=== PATIENT | male | born 1960 | race African-American/Black ===

== ENCOUNTER 2016-12-02 22:06 | Emergency (ER) | payer BC ==
[~2016-12-02] VITALS: Ht 167.6 cm; Wt 112.0 kg
[~2016-12-02 22:06] MED LIST: ACID REDUCER75 MG PO; ATENOLOL50 MG PO; LEXAPRO; LISINOPRIL20 MG PO; MIRALAX17 GM PO; PRILOSEC; PRINIVIL10 MG PO
[2016-12-02 22:51] LABS: HEMATOCRIT 38.3 % (38.0-50.0); MCH 29.5 PG (29.0-34.0); MCV 81.8 FL (86-99); MEAN PLAT.VOLUME 9.4 uM^3 (9.0-12.4); PLATELET COUNT 292 K/uL (156-360); RBC DIS.WIDTH-CV 12.9 % (11.8-14.6); RBC DIS.WIDTH-SD 38.3 % (39-53); RED BLOOD COUNT 4.68 M/uL (4.00-5.50); WHITE BLOOD COUNT 7.6 K/uL (4.1-10.2)
[2016-12-02 23:03] LABS: CHLORIDE 105 mEq/L (99-109); POTASSIUM 3.4 mEq/L (3.7-5.4); SODIUM 140 mEq/L (136-147)
[2016-12-02 23:04] LABS: GLUCOSE 107 mg/dL (70-99)
[2016-12-02 23:06] LABS: ANION GAP 8 MEQ/L (2-14)
[2016-12-02 23:08] LABS: GFR ESTIMATE (CALCULATED) > 59 mL/min/
[2016-12-02 23:09] LABS: UREA NITROGEN (BUN) 12 mg/dL (9-23)
[2016-12-03 00:08] LABS: TROP-I INTERPRETATION NEGATIVE; TROPONIN-I < 0.01 ng/mL (0.0-0.30)
[2016-12-03] MEDS ORDERED: PROAIR RESPICL90 MCG IH (00:47)
[2016-12-03] MEDS ORDERED: PREDNISONE50 MG PO (00:47)
[2016-12-03 01:16] VITALS: BP 130/86
== END 2016-12-03 01:16 | disposition home or self-care (01) ==
LOC: EME 22:06
PROVIDERS: Emergency Medicine
DX: J20.9 Acute bronchitis, unspecified (principal); I10 Essential (primary) hypertension
CPT/HCPCS: 71020; 80048; 83880; 84484; 85027; 93005; 94640; 99281; 99284; J7512

== ENCOUNTER 2017-08-16 01:16 | Emergency (ER) | payer BC ==
[~2017-08-16] VITALS: Ht 167.6 cm; Wt 115.8 kg
[~2017-08-16 01:16] MED LIST changes: +PREDNISONE50 MG PO; +PROAIR RESPICL90 MCG IH
[2017-08-16 02:49] LABS: HEMATOCRIT 41.6 % (38.0-50.0); HEMOGLOBIN 15.2 G/DL (12.5-16.6); MCH 30.7 PG (29.0-34.0); MCHC 36.5 G/DL (30.0-36.0); PLATELET COUNT 259 K/uL (156-360); RBC DIS.WIDTH-CV 13.5 % (11.8-14.6); RBC DIS.WIDTH-SD 41.6 % (39-53); RED BLOOD COUNT 4.95 M/uL (4.00-5.50); WHITE BLOOD COUNT 9.5 K/uL (4.1-10.2)
[2017-08-16 02:57] LABS: CHLORIDE 103 mEq/L (99-109); POTASSIUM 3.4 mEq/L (3.7-5.4); SODIUM 139 mEq/L (136-147)
[2017-08-16 02:59] LABS: GLUCOSE 110 mg/dL (70-99)
[2017-08-16 03:02] LABS: GFR ESTIMATE (CALCULATED) > 59 mL/min/ (58.99-99999)
[2017-08-16 03:03] LABS: UREA NITROGEN (BUN) 15 mg/dL (9-23)
[2017-08-16] MEDS ORDERED: PREDNISONE20 MG PO (05:25)
[2017-08-16 05:46] VITALS: BP 168/71
== END 2017-08-16 05:47 | disposition home or self-care (01) ==
LOC: EME 01:16
DX: J98.01 Acute bronchospasm (principal)
CPT/HCPCS: 71020; 80048; 85027; 94640; 94640 76; 99281; 99285; J7512